=== PATIENT | female | born 1990 | race Asian ===

== ENCOUNTER → 2019-11-02 | Outpatient (CLI) | payer OTHER | LOC: DIA.ED 08:16 | DX: O24.419 Gestational diabetes mellitus in pregnancy, unspecified control (principal); E03.9 Hypothyroidism, unspecified | CPT/HCPCS: G0108 ==

== ENCOUNTER → 2019-11-21 | Outpatient (CLI) | payer OTHER | LOC: DIA.ED 10:15 | DX: O24.419 Gestational diabetes mellitus in pregnancy, unspecified control (principal); E03.9 Hypothyroidism, unspecified | CPT/HCPCS: G0108 ==

== ENCOUNTER → 2019-12-05 | Outpatient (CLI) | payer OTHER | LOC: DIA.ED 08:27 | DX: O24.419 Gestational diabetes mellitus in pregnancy, unspecified control (principal); Z79.4 Long term (current) use of insulin; E03.9 Hypothyroidism, unspecified | CPT/HCPCS: G0108 ==

== ENCOUNTER → 2020-01-05 | Outpatient (CLI) | payer OTHER ==
[~2020-01-05] MED LIST: HUMALOG100 U/ML SQ; HUMULIN N PE100 U/ML; PRENATAL TABLET PO; VITAMIN D31000 I1 PO
== END ==
LOC: ZCOL.LAB 08:00
DX: Z20.828 Contact with and (suspected) exposure to other viral communicable diseases (principal)

== ENCOUNTER 2020-01-11 06:36 | Inpatient (IN) | payer OTHER ==
[2020-01-11] VITALS (21 sets, daily range): BP systolic 89–133; BP diastolic 50–77; PULSE 86–101; TEMP 98.3–98.7
[~2020-01-11] VITALS: Ht 160 cm; Wt 78.2 kg
--- NOTE | 2020-01-11 08:00 | NUR ---
Patient ambulatory to LR6 with spouse, changed into gown, FHR/TOCO monitors placed and explained. Patient denies any regular contractions, leaking of fluid, vaginal bleeding, or decreased movement. Plan of care discussed. Assessment completed, consents signed, packet given. 0820: IV started in left upper arm, blood obtained and to lab, NS infusing. Pitocin induction discussed and patient agrees with plan of care. 0836: Pitocin started at 2mU per protocol. 0845: Dr. Henderson at bedside and assessing patient and FHR strip. SVE per physician /-2 and AROM at this time with clear fluid noted. 0945: Patient requests epidural at this time and [address] CRNA notified. 1010: FHR baseline 145-150bpm and recurrent variable declerations noted. SVE-/-1 Patient sitting on edge of bed and Kell PETIT at bedside for placement of epidural. Difficulty tracing FHR due to maternal position. 1021: Test dose given and patient tolerates well. 1024: Patient repositioned and safety precautions given. Plan of care discussed. 1035: SVE-8-/90/[address] Henderson called and updated. 1052: Recurrent variable decelerations noted. Dr. Henderson at bedside and SVE-//0 and will recheck soon. 1110: Recurrent variable decelerations and Dr. Henderson watching FHR strip at nurses station. 1115: Dr. Henderson at bedside and SVE-/+1
[2020-01-11 08:25] LABS: BASO % 0.5 % (0.0-2.0); EOS # 0.2 (0.0-0.7); EOS % 3.1 % (0-4.0); GRAN # 3.4 (1.4-6.5); GRAN % 53.1 % (42.2-75.2); HEMATOCRIT 37.8 % (37.0-47.0); HEMOGLOBIN 12.6 g/dl (12.5-16.0); LYMPH # 2.3 (1.2-3.4); LYMPH % 36.3 % (20.0-51.0); MEAN CELL VOLUME 94 fl (80.0-100.0); MEAN CORPUSCULAR HEMOGLOBIN 31 pg (27.0-31.0); MEAN CORPUSCULAR HGB CONC 33 g/dl (33.0-37.0); MEAN PLATELET VOLUME 10.4 fl (7.4-10.4); MONO # 0.4 (0.1-0.6); MONO % 5.9 % (1.7-9.3); PLATELET COUNT 203 K/mm3 (130-400); RED BLOOD COUNT 4.01 M/mm3 (4.10-5.30); REDCELL DISTRIBUTION WIDTH-CV 13.6 % (11.5-14.5)
[2020-01-11] MEDS ORDERED: VITAMIN D31000 I1 PO (08:31)
[2020-01-11] MEDS ORDERED: PRENATAL TABLET PO (08:31)
[2020-01-11] MEDS ORDERED: HUMALOG100 U/ML SQ (09:56)
[2020-01-11] MEDS ORDERED: HUMULIN N PE100 U/ML (09:56)
--- NOTE | 2020-01-11 11:15 | NUR ---
Patient set up for vaginal delivery. 1122: Patient begins to push with contractions per physicians order. Variable decelerations noted. 1126: Spontaneous vaginal delivery of viable male-head followed by body. bulb syringed and to patients abdomen and E.Bonny RN assumes care of . Cord clamped by physician and cut by FOB. Cord blood obtained. 1129: Spontaneous delivery of placenta and pitocin bolus started per protocol at 333mU. Fundal massage done/firm/bleeding WNL Dr. Henderson repairs laceration and pericare done. Patient repositioned and ice pack to perineum. Plan of care discussed.
--- NOTE | 2020-01-11 14:45 | NUR ---
Patient ambulatory to bathroom to void, pericare done, new pad/underwear on, changed into clothes. Patient ambulates to new room and oriented to new room. Plan of care discussed. Whiteboard gone over.
--- NOTE | 2020-01-11 18:40 | NUR ---
Report recieved. Sitting quietly in bed by herself. Updated whiteboard and reviewed POC. Update given on . Denied questions or concerns.
--- NOTE | 2020-01-11 19:20 | NUR ---
Infant's flight team to room at this time. Pt became very tearful. Flight team reviewed information regarding care and the facility at which the infant is being transported to.
--- NOTE | 2020-01-11 20:00 | NUR ---
Patient sobbing at this time. Requesting to be discharged. Spouse to pick-up patient. Verbalizes that she plans to go to straight to [facility]. Certificate completed.
--- NOTE | 2020-01-11 20:30 | NUR ---
Discharge instructions reviewed; present. Bleeding minimal and fundus firm prior to discharge. Plans to obtained OC Motrin; educated on last dose and when you may take another dose. To call for a follow-up appointment. Declined any questions or concerns. 2044 - Ambulated off the unit with Jose King natural history collections curator at this time.
== END 2020-01-11 20:45 | disposition home or self-care (01) | DRG 807 ==
LOC: LDR 06:36 → OB 12:37
PROVIDERS: ADMIT Obstetrics & Gynecology
PROC: 10E0XZZ Delivery of Products of Conception, External Approach (ICD-10-PCS; principal; 2020-01-11)
PROC: 10907ZC Drainage of Amniotic Fluid, Therapeutic from Products of Conception, Via Natural or Artificial Opening (ICD-10-PCS; 2020-01-11)
PROC: 0HQ9XZZ Repair Perineum Skin, External Approach (ICD-10-PCS; 2020-01-11)
DX: O48.0 Post-term pregnancy (principal); Z37.0 Single live birth; O24.424 Gestational diabetes mellitus in childbirth, insulin controlled; O70.0 First degree perineal laceration during delivery; O69.81X0 Labor and delivery complicated by cord around neck, without compression, not applicable or unspecified; Z3A.40 40 weeks gestation of pregnancy
CPT/HCPCS: J2540; J2590; J7030